=== PATIENT | female | born 1965 | race Caucasian/White ===

== ENCOUNTER → 2021-03-28 | Outpatient (CLI) | payer BC ==
--- NOTE | 2021-03-28 14:26 | Diagnostic Imaging Report ---
INDICATION: History of kidney stones. TIME OF EXAM: 2:03 PM. FINDINGS: The bowel gas pattern is nonobstructed. There is moderate stool in the right colon. There are some calcific densities overlying the left renal shadow, perhaps renal calculi. No definite ureteral calculi are seen. No other abnormality is detected. IMPRESSION: 1. Moderate stool, suggestive of constipation. 2. Left abdominal calcifications which could be renal. No definite ureteral calculi are seen. Dictated by: Dictated on workstation # [id number]
--- NOTE | 2021-03-28 14:33 | Diagnostic Imaging Report ---
CT ABDOMEN/PELVIS WO TECHNIQUE: Unenhanced CT imaging of the abdomen and pelvis was performed. 2-D reformats are created and submitted for interpretation. Automatic exposure controls were utilized to optimize patient dose. INDICATION: Urinary tract infection, history of renal stone. COMPARISON: None available. FINDINGS: Evaluation of the abdominal viscera is mildly limited without contrast. Lower chest: The lung bases are clear. No pericardial or pleural effusion. Peritoneum: No free intraperitoneal air or fluid. Liver and biliary system: Unenhanced liver is normal. The gallbladder is normal. No biliary duct dilation. Spleen and Pancreas: Spleen is normal. Unenhanced pancreas is grossly normal. Adrenals: Normal. tract: There are a few sites of cortical thinning involving the left kidney most compatible with areas of scar. There are a few punctate nonobstructing stones in lower pole left kidney measuring up to 3 mm. No ureteral stones on either side. Urinary bladder is normally filled without intraluminal stone. Uterus is normal in appearance. Dominant left adnexal cyst measures 8.2 x 6.8 cm. GI tract: Stomach is decompressed. No bowel obstruction. No pericolonic inflammatory changes. Normal appendix. Vasculature and Lymph nodes: Normal caliber aorta. No abdominal or pelvic lymphadenopathy. Musculoskeletal: No concerning osseous lesion. IMPRESSION: 1. There are a few punctate nonobstructing left renal stones measuring up to 3 mm. 2. No ureteral stones or obstructive uropathy. 3. Indeterminate left adnexal cystic mass measuring 8.2 x 6.8 cm. If this has not been previously worked up, ultrasound of the pelvis is recommended for further assessment. Dictated by: Dictated on workstation # [id number]
== END ==
LOC: RAD 13:45
PROVIDERS: ATTEND Urology
DX: N20.0 Calculus of kidney (principal); N83.8 Other noninflammatory disorders of ovary, fallopian tube and broad ligament; Z87.440 Personal history of urinary (tract) infections
CPT/HCPCS: 74018; 74176

== ENCOUNTER → 2021-04-13 | Outpatient (CLI) | payer BC ==
--- NOTE | 2021-04-13 15:22 | Diagnostic Imaging Report ---
PROCEDURE: Pelvic comp/transvaginal sonogram. TECHNIQUE: Complete transabdominal and transvaginal pelvic ultrasound was performed. In addition, limited pelvic Doppler was performed. INDICATION: Pelvic swelling as well as mass and lump. Uterus is retroverted measuring 5.7 x 2.8 x 3.9 cm. Endometrium is 2 mm in thickness. Tiny echogenic focus lower uterine segments noted, likely small calcification. No other myometrial mass is detected. Hypoechoic nodule in the cervix measures 9 mm a 6 mm x 8 mm. This could represent a complex nabothian cyst. A right ovary measures 3.6 x 2.9 x 2.7 cm. There is a cystic mass within the right ovary measuring 2.7 x 2.4 x 2.1 cm. This appears be fairly simple with no associated vascularity. Normal ovarian tissue in the left adnexa is not identified. There is a large cystic mass left adnexa measuring 7.6 x 5.3 x 8.2 cm. No associated nodularity, septations or vascularity are seen. No free fluid is detected. IMPRESSION: Bilateral adnexal cystic masses, largest on the left measuring approximately 8 cm. Close interval follow-up to confirm clearing or stability would be recommended with repeat study in 6 8 weeks. No other significant abnormality is detected. Dictated by: Dictated on workstation # [id number]
== END ==
LOC: RAD 12:18
PROVIDERS: ATTEND Obstetrics & Gynecology
DX: N83.8 Other noninflammatory disorders of ovary, fallopian tube and broad ligament (principal)
CPT/HCPCS: 36415; 76830; 76856; 86304

== ENCOUNTER 2021-05-02 05:33 | Outpatient (CLI) | payer BC ==
[~2021-05-02] VITALS: Ht 177.8 cm; Wt 88.6 kg
[2021-05-02] MEDS ORDERED: GBPN600T PO (14:18)
[2021-05-02] MEDS ORDERED: ALPR1TAB10 PO (14:18)
[2021-05-02] MEDS ORDERED: LAMO100T5 PO (14:18)
[2021-05-02] MEDS ORDERED: ALPR2TAB6 PO (14:18)
[2021-05-02] MEDS ORDERED: BACL10TA PO (14:18)
[2021-05-02] MEDS ORDERED: NITR100C PO (14:18)
[2021-05-02] MEDS ORDERED: DIVA500T15 PO (14:18)
== END 2021-05-02 14:41 | disposition home or self-care (01) ==
LOC: PREOP 05:33
PROVIDERS: ATTEND Obstetrics & Gynecology
DX: Z01.818 Encounter for other preprocedural examination (principal)

== ENCOUNTER 2021-05-09 05:52 | Day surgery (SDC) | payer BC ==
[2021-05-09] VITALS (10 sets, daily range): BP systolic 105–149; BP diastolic 60–99
[~2021-05-09] VITALS: Ht 177.8 cm; Wt 88.6 kg
[~2021-05-09 05:52] MED LIST: ALPR1TAB10 PO; ALPR2TAB6 PO; BACL10TA PO; DIVA500T15 PO; GBPN600T PO; LAMO100T5 PO; NITR100C PO
--- OUTSIDE RECORDS SUMMARY | 2021-05-09 05:55 | XMS REPORT | Clinical Summary ---
Demographics Preferred Language Unknown Marital Status Unknown Uats[place] Affiliation Unknown Race Unknown Ethnic Group Unknown Author Author [facility] Organization [facility] Address Unknown Phone Unavailable Care Team Providers Care Detective Homicide Squad Name Role Phone PCP Unavailable Source Comments Some departments are not documenting in the electronic medical record. If you d o not see the information that you expected, contact Release of Information in [facility] Information Management department at [phone] for further assistan ce in locating additional records.[facility] Allergies Not on File Medications Not on file Active Problems Not on file Social History Date Tobacco Use Types Packs/Day Years Used Never Assessed Sex Assigned at Date Recorded Not on file Last Filed Vital Signs Not on file Plan of Treatment Health Maintenance Due Date Last Done Comments HIV SCREENING 1981 DTAP/TDAP VACCINES (1 - 1984 Tdap) HEPATITIS C SCREENING 1984 PHYSICAL (COMPREHENSIVE) 1984 EXAM CERVICAL CANCER SCREENING 1987 BREAST CANCER SCREENING 2006 COLORECTAL CANCER 2016 SCREENING SHINGLES RECOMBINANT 2016 VACCINE (1 of 2) INFLUENZA VACCINE 11/21/2020 Results Not on filefrom Last 3 Months
--- OUTSIDE RECORDS SUMMARY | 2021-05-09 05:55 | XMS REPORT | Clinical Summary ---
Author Author [facility] Address Unknown Phone Unavailable Care Team Providers Care Trader Name Role Phone Provider, Notinsystem MODEL USER PCP Unavail able Cirilo Loja MD Unavailable Zackery Mcknight MD, Robert Unavailable Allergies No known active allergies Medications End Date Status Medication Sig Dispensed Refills Start Date Active ALPRAZolam XR (XANAX XR) Take 1 tablet 0 06/11 1 MG 24 hr tablet by mouth 0 daily. Active ALPRAZolam (XANAX) 2 MG Take 2 mg by 0 tablet mouth daily. 0 Active divalproex (DEPAKOTE) 500 Take 1 tablet 0 06/[address] tablet by mouth 1 daily. Active gabapentin (NEURONTIN) Take 600 mg 0 600 MG tablet by mouth 2 (two) times daily. Active lamoTRIgine (LAMICTAL) Take 100 mg 0 06/30/ 02 100 MG tablet by mouth 1 daily. Active acetaminophen (TYLENOL) Take 1 tablet 30 tablet 0 500 MG tabletIndications: (500 mg 1 Intracranial hemorrhage total) by (HCC) mouth every 6 (six) hours as needed for Mild Pain. Active Problems Problem Noted Date Fall 02/17/2021 Acute hypernatremia 02/17/2021 Obesity (BMI 30.0-34.9) 02/17/2021 Bipolar affective disorder, currently depressed, mild 02/17/2021 Encounters Care Team Description Date Type Specialty Zakia Wing RN 02/22/2021 Transitional Care Management Care Management (TCM) Emily Santos MD Dixon, Brenner F, MD Stinson, Wade W Jr., Larissa Marcos MD Intracranial hemorrhage (HCC) (Primary D x); Open extensive facial fractures, initial encounter ([facility]) 02/17/2021 Hospital - Encounter 02/20/2021 from Last 3 Months Immunizations Name Administration Dates Next Due Tdap 02/17/2021 Social History Date Tobacco Use Types Packs/Day Years Used Unknown If Ever Smoked Comments Alcohol Use Standard Drinks/Week Pt reported that she drank "a couple bot tles of wine," leading to her fall. However, pt stated that she rarely drinks, and has only drank on two occasions this year. Yes 0 (1 standard drink = 0.6 o z pure alcohol) Alcohol Habits Answer Date Recorded How often do you have a drink containing alcohol? Monthly or less 02/18/2021 How many drinks containing alcohol do you have on No t asked a typical day when you are drinking? How often do you have six or more drinks on one Less than monthly 02/18/2021 occasion? Comment: Pt reported that she drank "a 02/19/20 21 couple bottles of wine," leading to her fall. However, pt stated that she rarely drinks, and has only drank on two occasions this year. Social Isolation Answer Date Recorded In a typical week, how many times do you talk on More than three times a week 02/18/2021 the phone with family, friends, or neig hbors? How often do you get together with friends or More than th ree times a week 02/18/2021 relatives? How often do you attend zoroastrian or amish Never 02/18/2021 services? Do you belong to any clubs or organizations such No 02/18/2021 as zoroastrian groups, unions, fraternal or athletic groups, or school groups? How often do you attend meetings of the clubs or Never 02/18/2021 organizations you belong to? Are you now , , , , Divorce d 02/18/2021 never or living with a partner? Physical Activity Answer Date Recorded On average, how many days per week do you engage 0 days 02/18/2021 in moderate to strenuous exercise (like walking fast, running, jogging, dancing, swimmi ng, biking, or other activities that cause a light or heavy sweat)? On average, how many minutes do you engage in 0 min 02/18/2021 exercise at this level? Stress Answer Date Recorded Do you feel stress - tense, restless, nervous, or To some extent 02/18/2021 anxious, or unable to sleep at night be cause your mind is troubled all the time - these d ays? Financial Resource Strain Answer Date Recorde d How hard is it for you to pay for the very basics Not very hard 02/18/2021 like food, housing, medical care, and h eating? Intimate Partner Violence Answer Date Recorde d Within the last year, have you been afraid of your No 02/18/2021 partner or ex-partner? Within the last year, have you been humiliated or No 02/18/2021 emotionally abused in other ways by you r partner or ex-partner? Within the last year, have you been kicked, hit, No 02/18/2021 slapped, or otherwise physically hurt b y your partner or ex-partner? Within the last year, have you been raped or No 02/18/2021 forced to have any kind of sexual activ ity by your partner or ex-partner? Food Insecurity Answer Date Recorded Within the past 12 months, you worried that your Never oswaldo e 02/18/2021 food would run out before you got money to buy more. Within the past 12 months, the food you bought Never true 02/18/2021 just didn't last and you didn't have mo saray to get more. Transportation Needs Answer Date Recorded In the past 12 months, has lack of transportation No 02/18/2021 kept you from medical appointments or f rom getting medications? In the past 12 months, has lack of transportation No 02/18/2021 kept you from meetings, work, or gettin g things needed for daily living? Housing Stability Answer Date Recorded In the last 12 months, was there a time when you No 02/18/2021 were not able to pay the mortgage or re nt on time? In the last 12 months, how many places have you 1 02/18/2021 lived? In the last 12 months, was there a time when you No 02/18/2021 did not [address] a steady place to sleep or slept in a skilled nursing (including now)? Education Answer Date Recorded What is the highest level of school you have Master's degr ee (e.g., MA, MS, 02/18/2021 completed or the highest degree you have received? 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[employer], DINA) Sex Assigned at Date Recorded Not on file Last Filed Vital Signs Reading Time Taken Comments Vital Sign 126/76 02/20/2021 3:31 AM CDT Blood Pressure 62 02/20/2021 8:00 AM CDT Pulse 36.9 C (98.5 F) 02/20/2021 8:00 AM CDT Temperature 18 02/20/2021 8:00 AM CDT Respiratory Rate 97% 02/20/2021 8:00 AM CDT Oxygen Saturation - - Inhaled Oxygen Concentration 87.1 kg (192 lb) 02/18/2021 6:00 AM CDT Weight 165.1 cm (5' 5") 02/17/2021 1:07 PM CDT Height 31.95 02/17/2021 1:07 PM CDT Body Mass Index Plan of Treatment Health Maintenance Due Date Last Done Comments HIV Screening 1966 Pneumo-Vaccine: 65+Yrs (1 1972 of 2 - PPSV23) Pneumo-Vaccine: Peds (0-5 1972 Yrs) & At-Risk Patients (6-64 Yrs) (1 of 2 - PPSV23) Hepatitis C Screening 1984 MMR Vaccines-Adult 1985 Cervical Cancer Screening 1987 Colon Cancer Screening 2011 Breast Cancer 2016 Screening-Mammogram Zoster Vaccine (1 of 2) 2016 Influenza Vaccine (#1) 2020 DTaP,Tdap,and Td Vaccines 02/17/2031 02/17/2021 (2 - Td or Tdap) COVID-19 Vaccine Completed 03/24/2021, 08/10/2020, 07/13/2020 HIB Vaccines Aged Out No longer eligible based on patient's age to complete this topic IPV Vaccines Aged Out No longer eligible based on patient's age to complete this topic Meningococcal Vaccine Aged Out No longer eligib le based on patient's age to complete this topic Rotavirus Vaccines Aged Out No longer eligible based on patient's age to complete this topic Procedures Comments Procedure Name Priority Date/Time Associated Diag nosis CT HEAD WO CONTRAST Routine 02/19/2021 12:34 PM CDT CBC WITH AUTO Timed 02/19/2021 DIFFERENTIAL 6:20 AM CDT PHOSPHORUS Timed 02/19/2021 6:20 AM CDT MAGNESIUM Timed 02/19/2021 6:20 AM CDT BASIC METABOLIC PANEL Timed 02/19/2021 6:20 AM CDT CBC AND DIFFERENTIAL Timed 02/19/2021 6:20 AM CDT TELEMETRY WAVEFORMS 02/18/2021 12:01 PM CDT XR CHEST PA OR AP Routine 02/18/2021 9:15 AM CDT TELEMETRY WAVEFORMS 02/18/2021 8:[address] HEAD WO CONTRAST Routine 02/18/2021 5:59 AM CDT CBC WITH AUTO Timed 02/18/2021 DIFFERENTIAL 4:27 AM CDT PHOSPHORUS Timed 02/18/2021 4:27 AM CDT MAGNESIUM Timed 02/18/2021 4:27 AM CDT CBC AND DIFFERENTIAL Timed 02/18/2021 4:27 AM CDT COMPREHENSIVE METABOLIC Timed 02/18/2021 PANEL 4:27 AM CDT DRUG SCREEN (8) MEDICAL Timed 02/18/2021 12:46 AM CDT TELEMETRY WAVEFORMS 02/17/2021 7:40 PM CDT SV ED CRITICAL CARE Routine 02/17/2021 4:[address] ANGIO HEAD AND NECK STAT 02/17/2021 W/WO CONTRAST 3:38 PM CDT SALICYLATES STAT 02/17/2021 3:28 PM CDT DRUG SCREEN (8) MEDICAL STAT 02/17/2021 3:28 PM CDT URINALYSIS, REFLEX STAT 02/17/2021 CULTURE IF NEEDED 3:28 PM CDT HC SARS-COV-2 COVID-29 STAT 02/17/2021 AMP PRB 2:[address] CHEST ABDOMEN PELVIS W STAT 02/17/2021 CONTRAST 1:[address] CERVICAL SPINE WO STAT 02/17/2021 CONTRAST 1:[address] MAXILLOFACIAL WO STAT 02/17/2021 CONTRAST 1:[address] HEAD WO CONTRAST STAT 02/17/2021 1:45 PM CDT MANUAL WBC DIFFERENTIAL Routine 02/17/2021 1:22 PM CDT SCAN STAT 02/17/2021 1:22 PM CDT CBC WITH AUTO STAT 02/17/2021 DIFFERENTIAL 1:22 PM CDT PT & APTT STAT 02/17/2021 1:22 PM CDT HC STAT 02/17/2021 [id number] 1:22 PM CDT -Q CBC AND DIFFERENTIAL STAT 02/17/2021 1:22 PM CDT ALCOHOL, SERUM STAT 02/17/2021 1:22 PM CDT COMPREHENSIVE METABOLIC STAT 02/17/2021 PANEL 1:22 PM CDT from Last 3 Months Results * CT Head without Contrast (02/19/2021 12:34 PM CDT) Only the most recent of 3 results within the time period is included. Modality Anatomical Region Laterality Computed Tomography Head Specimen Impressions [facility] - 02/19/2021 12:56 PM CDT IMPRESSION: 1. Stable small epidural hematoma in the anterior right middle cranial fossa. 2. Stable hemorrhagic contusion in the i nferior left temporal lobe. 3. Subarachnoid blood along the anterior right frontal lobe has slightly decreased when compared with prior exams. 4. Stable facial bone fractures. Electronically signed by German Hinson MD Narrative [facility] - 02/19/2021 12:56 PM CDT PROCEDURE: CT HEAD WO CONTRAST STUDY DATE: February 19, 2021 TOTAL DLP 1064 mGycm CLINICAL INDICATION / HISTORY: Follow-up subdural hematoma, patient is hospital day 2. For right frontal cranial fossa subdu ral hematoma.. TECHNIQUE: Contiguous axial images were acquired from the skull base to the vertex on a multidetector scanner. All CT scans performed at this facility utilize dose reduction techniques as appropriate to the exam, including the following: Automatic Exposure Control and adjustment of the mA and/or kV according to patient size (this includes techniques or standardized protocols for targeted exams). COMPARISON: Head CT 02/18/2021 FINDINGS: Brain Parenchyma: Global parenchymal atrophy is present. No signs of infarction. Evans-white matter junction is preserved. Small hemorrhagic contusion is present in the inferior left temporal lobe on series 10, images 70-84. White matter: Periventricular white matter has normal attenuation. Cerebellum:Normal. Masses/midline shift: No mass or midline shift. Hemorrhage: Thin epidural hematoma in the right middle cranial fossa is unchanged. Faint subarachnoid blood is present over the anterior, superior right frontal gyrus. Subarachnoid blood has decreased when compared to the prior head CT's. Ventricles: The ventricles, sulci and cisterns are normal in appearance. Orbits: The orbits are normal in appearance. Paranasal sinuses: The paranasal sinuses are pneumatized. The mastoid air cells are pneumatized. Osseous: Nondisplaced fracture of the right zygomatic arch is unchanged. Soft tissues: Soft tissue swelling along the right face and frontal scalp is present and has decreased. Procedure Note German Hinson MD - 02/19/2021 PROCEDURE: CT HEAD WO CONTRAST STUDY DATE: February 19, 2021 TOTAL DLP 1064 mGycm CLINICAL INDICATION / HISTORY: Follow-up subdural hematoma, patient is hospital day 2. For right frontal cranial fossa subdu ral hematoma.. TECHNIQUE: Contiguous axial images were acquired from the skull base to the vertex on a multidetector scanner. All CT scans performed at this facility utilize dose reduction techniques as appropriate to the exam, including the following: Automatic Exposure Control and adjustment of the mA and/or kV according to patient size (this includes techniques or standardized protocols for targeted exams). COMPARISON: Head CT 02/18/2021 FINDINGS: Brain Parenchyma: Global parenchymal atrophy is present. No signs of infarction. Evans-white matter junction is preserved. Small hemorrhagic contusion is present in the inferior left temporal lobe on series 10, images 70-84. White matter: Periventricular white matter has normal attenuation. Cerebellum:Normal. Masses/midline shift: No mass or midline shift. Hemorrhage: Thin epidural hematoma in the right middle cranial fossa is unchanged. Faint subarachnoid blood is present over the anterior, superior right frontal gyrus. Subarachnoid blood has decreased when compared to the prior head CT's. Ventricles: The ventricles, sulci and cisterns are normal in appearance. Orbits: The orbits are normal in appearance. Paranasal sinuses: The paranasal sinuses are pneumatized. The mastoid air cells are pneumatized. Osseous: Nondisplaced fracture of the right zygomatic arch is unchanged. Soft tissues: Soft tissue swelling along the right face and frontal scalp is present and has decreased. IMPRESSION: IMPRESSION: 1. Stable small epidural hematoma in the anterior right middle cranial fossa. 2. Stable hemorrhagic contusion in the i nferior left temporal lobe. 3. Subarachnoid blood along the anterior right frontal lobe has slightly decreased when compared with prior exams. 4. Stable facial bone fractures. Electronically signed by German Hinson MD Performing Organization Address City/State/ZIP Code P jan Number [facility] * CBC auto differential (02/19/2021 6:20 AM CDT) Only the most recent of 3 results within the time period is included. WBC 4.0 3.5 - 10.5 10E9/L [facility] RBC 3.79 (L) 3.90 - 5.03 10E12/L [facility] Hemoglobin 11.3 (L) 12.0 - 15.5 g/dL [facility] Hematocrit 32.5 (L) 34.9 - 44.5 % [facility] MCV 85.8 81.6 - 98.3 fL [facility] MCH 29.8 26.0 - 34.0 pg [facility] MCHC 34.8 31.0 - 37.0 g/dL [facility] RDW 12.1 11.9 - 15.5 % [facility] Platelets 193 150 - 450 10E9/L [facility] nRBC 0.00 <=0.00 10E9/L [facility] Neutrophils % 51.1 40.0 - 75.0 % [facility] Lymphocytes % 39.8 22.0 - 49.0 % [facility] Monocytes % 6.5 2.0 - 10.0 % [facility] Eosinophils % 1.8 <=5.0 % [facility] Basophils % 0.8 0.0 - 2.5 % [facility] Neutrophils 2.05 1.70 - 7.00 10E9/L [facility] Lymphocytes 1.59 0.90 - 2.90 10E9/L [facility] Monocytes 0.26 (L) 0.30 - 0.90 10E9/L [facility] Eosinophils 0.07 0.05 - 0.50 10E9/L [facility] Basophils 0.03 0.00 - 0.30 10E9/L [facility] % nRBC 0 % [facility] Specimen Blood Performing Organization Address City/State/ZIP Code P jan Number [facility] [address] [place] [id number] * Phosphorus (02/19/2021 6:20 AM CDT) Only the most recent of 2 results within the time period is included. Phosphorus 2.8 2.7 - 4.5 mg/dL [facility] Specimen Blood Performing Organization Address City/State/ZIP Code P jan Number [facility] [address] [place] [address] * Magnesium (02/19/2021 6:20 AM CDT) Only the most recent of 2 results within the time period is included. Magnesium 1.9 1.6 - 2.3 mg/dL [facility] Specimen Blood Performing Organization Address City/[facility]/ZIP Code P jan Number [facility] [address] [place] [address] * Basic metabolic panel (02/19/2021 6:20 AM CDT) [facility] Sodium 142 136 - 145 mmol/L [facility] Potassium 3.7 3.6 - 4.9 mmol/L [facility] Chloride 108 99 - 111 mmol/L [facility] CO2 26 20 - 36 mmol/L [facility] Anion Gap 8 [facility] Glucose 104 74 - 106 mg/dL [facility] Calcium 8.3 8.3 - 10.6 mg/dL [facility] BUN, Bld 8 6 - 20 mg/dL [facility] Creatinine 0.58 0.40 - 1.10 mg/dL [facility] eGFR >59 >59 mL/min [facility] Specimen Blood Performing Organization Address [facility] P jan Number [facility] [address] [place] [id number] * TELEMETRY WAVEFORMS (02/18/2021 12:01 PM CDT) Only the most recent of 3 results within the time period is included. Pathologist [facility] TELE TX 0.14 [facility] TELE QRS 0.06 [facility] TELE QT 0.30 [facility] TELE COMMENTS SJA RSR HR 100 [facility] TELE transfer [facility] INTERPRETATION TORING DIET AID/LOOM TECHNICIAN Yes [facility] APPROVED TORING Specimen Performing Organization Address City/[facility]/ZIP [facility] P jan Number [facility] * XR Chest (1 view) (02/18/2021 9:15 AM CDT) Modality Anatomical Region Laterality Computed Radiography Chest Specimen Impressions [facility] - 02/18/2021 12:30 PM CDT IMPRESSION: No active cardiopulmonary disease. Narrative [facility] - 02/18/2021 12:30 PM CDT EXAM: Portable Chest INDICATION: Follow-up chest trauma TECHNIQUE: Portable AP view COMPARISON: None FINDINGS: The heart size is normal. The great vessels appear unremarkable. There is no hilar or mediastinal mass. The lungs are clear. There is no pleural effusion or pneumothorax. A left shoulder arthroplasty is present. Procedure Note Tiffanie Ny MD - 02/18/2021 EXAM: Portable Chest INDICATION: Follow-up chest trauma TECHNIQUE: Portable AP view COMPARISON: None FINDINGS: The heart size is normal. The great vessels appear unremarkable. There is no hilar or mediastinal mass. The lungs are clear. There is no pleural effusion or pneumothorax. A left shoulder arthroplasty is present. IMPRESSION: IMPRESSION: No active cardiopulmonary disease. Performing Organization Address City/State/ZIP Code P jan Number HARLEEN Espinoza * Comprehensive metabolic panel (02/18/2021 4:27 AM CDT) Only the most recent of 2 results within the time period is included. Sodium 143 136 - 145 mmol/L [facility] Potassium 3.7 3.6 - 4.9 mmol/L [facility] Chloride 109 99 - 111 mmol/L [facility] CO2 25 20 - 36 mmol/L [facility] Anion Gap 9 [facility] Glucose 87 74 - 106 mg/dL [facility] Total Protein 5.5 (L) 5.7 - 8.2 g/dL [facility] Albumin 3.7 3.4 - 4.8 g/dL [facility] Calcium 7.6 (L) 8.3 - 10.6 mg/dL [facility] BUN, Bld 7 6 - 20 mg/dL [facility] Creatinine 0.56 0.40 - 1.10 mg/dL [facility] eGFR >59 >59 mL/min [facility] Total Bilirubin 0.4 0.0 - 1.2 mg/dL [facility] Alkaline 53 29 - 122 U/L [facility] ALT 13 10 - 46 U/L [facility] AST 20 16 - 37 U/L [facility] Specimen Blood Performing Organization Address City/State/ZIP Code P jan Number [facility] [address] [place] [address] * Drug Screen (8) Medical (02/18/2021 12:46 AM CDT) Only the most recent of 2 results within the time period is included. Amphetamine Negative Negative Cutoff 1000 [facility] ng/mL [facility] Barbiturates Negative Negative Cutoff 200 [facility] ng/mL [facility] Benzodiazepines Positive (A) Negative Cutoff 200 [facility] ng/mL [facility] Opiates Negative Negative Cutoff 300 [facility] ng/mL [facility] PCP Negative Negative Cutoff 25 [facility] ng/mL [facility] THC Negative Negative Cutoff 50 [facility] ng/mL [facility] MDMA Negative Negative Cutoff 500 [facility] ng/mL [facility] Cocaine Negative Negative Cutoff 300 [facility] (Metabolite) ng/mL LAB[facility]ORY pH, UA 6.0 5.0 - 8.0 [facility] Specific 1.030 1.003 - 1.030 [facility] Riggins, UA LAB[facility]ATORY Ylcus-tl-Oxlzal [facility] y Protocol LABORATORY Specimen Urine - Urine specimen (specimen) Narrative [facility] - 02/18/2021 1:39 AM CDT Results not confirmed. May not meet forensic requirements. Confirmation by GC/MS available upon request. Performing Organization Address City/State/ZIP Code P jan Number [facility] [address] [place] [id number] * CRITICAL CARE TIME (02/17/2021 4:24 PM CDT) Narrative Agueda Vaca DO - 02/17/2021 4:24 PM CDT Agueda Vaca DO 02/17/2021 4:25 PM CRITICAL CARE TIME Performed by: Agueda Vaca DO Authorized by: Agueda Vaca DO Critical care provider statement: Critical care time (minutes): 35 Critical care was necessary to treat or prevent imminent or life-threatening deterioration of the following conditions: Trauma Critical care was time spent personally by me on the following activities: Ordering and review of radiographic studies, discussions with consultants, evaluation of patient's response to treatment, examination of patient and re-evaluation of patient's condition I assumed direction of critical care for this patient from another provider in my specialty: yes * CT Angio Head and Neck (with / without contrast) (02/17/2021 3:38 PM CDT) Modality Anatomical Region Laterality Computed Tomography Neck, C-spine, Vascular, Head Specimen Impressions [facility] - 02/17/2021 4:17 PM CDT IMPRESSION: 1. No dissection, occlusion, or high-g rade stenosis of the major arteries of the head and neck. 2. Multiple acute intracranial hemorrh ages and right-sided calvarial fractures are unchanged. Electronically signed by Cory Pollard MD Narrative [facility] - 02/17/2021 4:17 PM CDT EXAM: CT Angiogram of the Head and Neck INDICATION: trauma TECHNIQUE: CT images were obtained through the head per standard CTA protocol. Multiplanar and 3D reformatted images were generated from the CT dataset. All CT scans performed at this facility utilize dose optimization techniques as appropriate to the exam, including the following: Automated exposure control and adjustment of the mA and/or KV according to patient size (this includes techniques or standardized protocols for targeted exams where dose is indication/reason for exam). IV CONTRAST: Administered DLP 250 mGycm COMPARISON: None FINDINGS: CTA HEAD: No high-grade large vessel stenosis, proximal or branch vessel occlusion, aneurysm, or vascular malformation. ANTERIOR CIRCULATION: Small atherosclerotic plaque in the left cavernous ICA. Anterior and middle cerebral arteries are widely patent. ANTERIOR COMMUNICATING ARTERY: Patent. POSTERIOR COMMUNICATING ARTERIES: Present bilaterally and patent. POSTERIOR CIRCULATION: There is a origin of the bilateral posterior cerebral arteries. Vertebral and basilar arteries are widely patent. The left posterior inferior cerebellar arteries (PICAs), bilateral anterior inferior cerebellar arteries (AICAs), and bilateral superior cerebell ar arteries (SCAs) are visualized and patent. OTHER: Multiple acute intracranial hemorrhages are better visualized on the prior noncontrast enhanced CT of the head. Multiple right-sided calvarial fractures are stable. There is fluid in the paranasal sinuses. NECK CTA: AORTA: The origins of the great vessels are not included in the [id number]. No dissection or acute aortic injury. RIGHT CAROTID: The common and internal carotid arteries are widely patent, without evidence of flow limiting stenosis or dissection. LEFT CAROTID: The common and internal carotid arteries are widely patent, without evidence of flow limiting stenosis or dissection. VERTEBRAL ARTERIES: The right vertebral artery is dominant. No evidence of dissection or flow limiting stenosis. SUBCLAVIAN ARTERIES: Subclavian arteries are patent without stenosis. SOFT TISSUES: Laceration and swelling of the right frontal scalp. LUNGS: Dependent atelectasis. BONES: Multilevel degenerative changes and kyphotic curvature of the cervical spine. Where applicable, evaluation of ICA stenosis was performed using NASCET criteria, where the site of greatest stenosis is compared to the diameter of the ICA distal to the carotid bulb. Procedure Note Cory Pollard MD - 02/17/2021 EXAM: CT Angiogram of the Head and Neck INDICATION: trauma TECHNIQUE: CT images were obtained through the head per standard CTA protocol. Multiplanar and 3D reformatted images were generated from the CT dataset. All CT scans performed at this facility utilize dose optimization techniques as appropriate to the exam, including the following: Automated exposure control and adjustment of the mA and/or KV according to patient size (this includes techniques or standardized protocols for targeted exams where dose is indication/reason for exam). IV CONTRAST: Administered DLP 250 mGycm COMPARISON: None FINDINGS: CTA HEAD: No high-grade large vessel stenosis, proximal or branch vessel occlusion, aneurysm, or vascular malformation. ANTERIOR CIRCULATION: Small atherosclerotic plaque in the left cavernous ICA. Anterior and middle cerebral arteries are widely patent. ANTERIOR COMMUNICATING ARTERY: Patent. POSTERIOR COMMUNICATING ARTERIES: Present bilaterally and patent. POSTERIOR CIRCULATION: There is a origin of the bilateral posterior cerebral arteries. Vertebral and basilar arteries are widely patent. The left posterior inferior cerebellar arteries (PICAs), bilateral anterior inferior cerebellar arteries (AICAs), and bilateral superior cerebell ar arteries (SCAs) are visualized and patent. OTHER: Multiple acute intracranial hemorrhages are better visualized on the prior noncontrast enhanced CT of the head. Multiple right-sided calvarial fractures are stable. There is fluid in the paranasal sinuses. NECK CTA: AORTA: The origins of the great vessels are not included in the [id number]. No dissection or acute aortic injury. RIGHT CAROTID: The common and internal carotid arteries are widely patent, without evidence of flow limiting stenosis or dissection. LEFT CAROTID: The common and internal carotid arteries are widely patent, without evidence of flow limiting stenosis or dissection. VERTEBRAL ARTERIES: The right vertebral artery is dominant. No evidence of dissection or flow limiting stenosis. SUBCLAVIAN ARTERIES: Subclavian arteries are patent without stenosis. SOFT TISSUES: Laceration and swelling of the right frontal scalp. LUNGS: Dependent atelectasis. BONES: Multilevel degenerative changes and kyphotic curvature of the cervical spine. Where applicable, evaluation of ICA stenosis was performed using NASCET criteria, where the site of greatest stenosis is compared to the diameter of the ICA distal to the carotid bulb. IMPRESSION: IMPRESSION: 1. No dissection, occlusion, or high-gr amanda stenosis of the major arteries of the head and neck. 2. Multiple acute intracranial hemorrha ges and right-sided calvarial fractures are unchanged. Electronically signed by Cory Pollard MD Performing Organization Address City/State/ZIP Code P jan Number [facility] * Salicylates (02/17/2021 3:28 PM CDT) Salicylate, Negative [facility] LABORATORY Specimen Urine - Urine specimen obtained by clean catch procedure (specimen) Performing Organization Address City/State/ZIP Code P jan Number [facility] [address] [place] [address] * Urinalysis, reflex culture if indicated (02/17/2021 3:28 PM CDT) Color, UA Yellow [facility] Appearance Clear [facility] Specific 1.029 1.003 - 1.030 [facility] [place], UA LABORATORY pH, UA 5.5 5.0 - 8.0 [facility] Leukoesterase, Negative Negative [facility] LABOR[facility] Nitrites, UA Negative Negative [facility] Protein, UA Negative Negative [facility] Glucose, UA Negative Negative [facility] Ketones, UA Negative Negative [facility] Urobilinogen, 0.2 0.2 EU [facility]A LABOR[facility] Bilirubin, UA Negative Negative [facility] Hemoglobin, UA Negative Negative [facility] Squam Epithel, None [facility]en [facility] WBC, UA 0-3 0 - 3 [facility] RBC, UA 0-3 0 - 3 [facility] Specimen Urine - Urine specimen obtained by clean catch procedure (specimen) [facility] - 02/17/2021 3:53 PM CDT Urine was not cultured. Urinalysis results did not meet criteria for culture. Performing Organization Address City/State/ZIP Code P jan Number [facility] [address] [place] [address] * Perform Covid-19 By PCR (02/17/2021 2:47 PM CDT) COVID-19 (SV) Negative Negative [facility] Specimen Other - Other Performing Organization Address City/State/ZIP Code P jan Number [facility] [address] [place] [address] * CT Chest Abd & Pelvis (with IV contrast) (02/17/2021 1:45 PM CDT) Modality Anatomical Region Laterality Computed Tomography Abdomen, Chest, Pelvis, Hip Specimen Impressions [facility] - 02/17/2021 2:48 PM CDT IMPRESSION: 1. No definite acute abnormality is iden tified. 2. Low-density nodule along the inferior lateral right lobe of the thyroid gland. Recommend a follow-up thyroid ultrasound on a routine outpatient basis. 3. Dependent pulmonary opacities likely from atelectasis. 4. Small indeterminate left adrenal nodu le could represent an adrenal adenoma however recommend a follow-up CT of the abdomen with and without contrast and delayed imaging in 3-6 months. 5. Multiple areas of left renal cortical scarring. 6. Large left ovarian cystic lesion ashok uring up to 8.0 cm. There is a small right ovarian cystic lesion measuring 2.5 cm. Recommend clinical correlation and possible gynecological follow-up. 7. Focal area of luminal narrowing mid t o distal transverse colon. While this could relate to peristalsis, this does persist on the more delayed imaging. Therefore recommend clinical correlation and either short-term follow-up CT in approximately 3 months or if indicated, colonoscopy. Electronically signed by Quincy Zeng Narrative [facility] - 02/17/2021 2:48 PM CDT EXAM: CT Chest, Abdomen, and Pelvis with IV contrast INDICATION: fall, intoxicated TECHNIQUE: Multi-detector row CT images were acquired from the thoracic inlet through the ischial tuberosities with the use of IV contrast. Sagittal and coronal images were acquired from the transaxial data. All CT scans performed at this facility utilize dose optimization techniques as appropriate to the exam, including the following: Automated exposure control and adjustment of the mA and/or KV according to patient size (this includes techniques or standardized protocols for targeted exams where dose is matched to the indication/reason for exam). IV CONTRAST: Administered ORAL CONTRAST: None DLP 2242 mGycm COMPARISON: None FINDINGS: CHEST: CARDIOVASCULAR: Unremarkable. MEDIASTINUM & PETER: Low-density nodule along the inferior lateral right lobe of the thyroid gland measuring 1.7 x 1.5 cm on series 6 image 10. AIRWAY: Unremarkable. LUNGS: Dependent bilateral pulmonary opacities most likely related to decreased depth of aeration and atelectasis. PLEURAL SPACE: No pleural effusions or pneumothorax. OSSEOUS & SOFT TISSUE: Previous left shoulder arthroplasty noted. Bilateral breast implants. ABDOMEN/PELVIS: LIVER: Unremarkable. BILIARY SYSTEM: Gallbladder is unremarkable. Bile ducts are not dilated. PANCREAS: Unremarkable. SPLEEN: Unremarkable. ADRENALS: Small somewhat indeterminate left adrenal nodule measuring 1.3 x 0.9 cm on series 6 image 89. KIDNEYS & URETERS: Multiple areas of left renal cortical scarring. BLADDER: Unremarkable. REPRODUCTIVE ORGANS: Large left ovarian cyst measuring 8.0 x 6.9 cm. Small right ovarian cyst measuring 2.5 x 2.2 cm. GASTROINTESTINAL: The abdominal and pelvic bowel loops are normal in caliber. Focal area of luminal narrowing of the mid to distal transverse colon. While this is felt related to peristalsis, this does persist on the more delayed imaging. Therefore recommend clinical correlation and either short interval follow-up CT in approximately 3 months or if indicated, colonoscopy. The appendix is normal. MESENTERY/PERITONEUM/RETROPERITONEUM: Unremarkable. VASCULAR: Unremarkable. LYMPH NODES: No adenopathy OSSEOUS & SOFT TISSUES: Unremarkable. Procedure Note Quincy Zeng MD - 02/17/2021 EXAM: CT Chest, Abdomen, and Pelvis with IV contrast INDICATION: fall, intoxicated TECHNIQUE: Multi-detector row CT images were acquired from the thoracic inlet through the ischial tuberosities with the use of IV contrast. Sagittal and coronal images were acquired from the transaxial data. All CT scans performed at this facility utilize dose optimization techniques as appropriate to the exam, including the following: Automated exposure control and adjustment of the mA and/or KV according to patient size (this includes techniques or standardized protocols for targeted exams where dose is matched to the indication/reason for exam). IV CONTRAST: Administered ORAL CONTRAST: None DLP 2242 mGycm COMPARISON: None FINDINGS: CHEST: CARDIOVASCULAR: Unremarkable. MEDIASTINUM & PETER: Low-density nodule along the inferior lateral right lobe of the thyroid gland measuring 1.7 x 1.5 cm on series 6 image 10. AIRWAY: Unremarkable. LUNGS: Dependent bilateral pulmonary opacities most likely related to decreased depth of aeration and atelectasis. PLEURAL SPACE: No pleural effusions or pneumothorax. OSSEOUS & SOFT TISSUE: Previous left shoulder arthroplasty noted. Bilateral breast implants. ABDOMEN/PELVIS: LIVER: Unremarkable. BILIARY SYSTEM: Gallbladder is unremarkable. Bile ducts are not dilated. PANCREAS: Unremarkable. SPLEEN: Unremarkable. ADRENALS: Small somewhat indeterminate left adrenal nodule measuring 1.3 x 0.9 cm on series 6 image 89. KIDNEYS & URETERS: Multiple areas of left renal cortical scarring. BLADDER: Unremarkable. REPRODUCTIVE ORGANS: Large left ovarian cyst measuring 8.0 x 6.9 cm. Small right ovarian cyst measuring 2.5 x 2.2 cm. GASTROINTESTINAL: The abdominal and pelvic bowel loops are normal in caliber. Focal area of luminal narrowing of the mid to distal transverse colon. While this is felt related to peristalsis, this does persist on the more delayed imaging. Therefore recommend clinical correlation and either short interval follow-up CT in approximately 3 months or if indicated, colonoscopy. The appendix is normal. MESENTERY/PERITONEUM/RETROPERITONEUM: Unremarkable. VASCULAR: Unremarkable. LYMPH NODES: No adenopathy OSSEOUS & SOFT TISSUES: Unremarkable. IMPRESSION: IMPRESSION: 1. No definite acute abnormality is iden tified. 2. Low-density nodule along the inferior lateral right lobe of the thyroid gland. Recommend a follow-up thyroid ultrasound on a routine outpatient basis. 3. Dependent pulmonary opacities likely from atelectasis. 4. Small indeterminate left adrenal nodu le could represent an adrenal adenoma however recommend a follow-up CT of the abdomen with and without contrast and delayed imaging in 3-6 months. 5. Multiple areas of left renal cortical scarring. 6. Large left ovarian cystic lesion ashok uring up to 8.0 cm. There is a small right ovarian cystic lesion measuring 2.5 cm. Recommend clinical correlation and possible gynecological follow-up. 7. Focal area of luminal narrowing mid t o distal transverse colon. While this could relate to peristalsis, this does persist on the more delayed imaging. Therefore recommend clinical correlation and either short-term follow-up CT in approximately 3 months or if indicated, colonoscopy. Electronically signed by Quincy Zeng Performing Organization Address City/State/ZIP Code P jan Number [facility] * CT Cervical Spine without Contrast (02/17/2021 1:45 PM CDT) Modality Anatomical Region Laterality Computed Tomography C-spine, T-spine, Neck, Spine Specimen Impressions [facility] - 02/17/2021 2:34 PM CDT IMPRESSION: 1. No acute osseous abnormality is ident ified. 2. Soft tissue prominence in the nasal c avity along the turbinates could be within normal limits or represent etiology such as polyposis. Electronically signed by Quincy Zeng Narrative [facility] - 02/17/2021 2:34 PM CDT EXAM: CT Cervical Spine without IV contrast INDICATION: fall TECHNIQUE: Multi-detector row CT images were obtained through the cervical spine without the use of IV contrast. Post-processing sagittal and coronal reconstructed images were obtained for interpretation. All CT scans performed at this facility utilize dose optimization techniques as appropriate to the exam, including the following: Automated exposure control and adjustment of the mA and/or KV according to patient size (this includes techniques or standardized protocols for targeted exams where dose is matched to the indication/reason for exam). DLP 476 mGycm COMPARISON: None FINDINGS: CRANIOCERVICAL JUNCTION: Unremarkable. ALIGNMENT: Alignment is within normal limits. OSSEOUS: No evidence of fracture or bone destruction. DISC SPACES: Multilevel mild to moderate degenerative disc disease. FACET JOINTS: Multilevel mild uncovertebral and facet joint hypertrophy. SPINAL CANAL: Unremarkable. NEUROFORAMINA: Unremarkable. SOFT TISSUES: Soft tissue prominence in the nasal cavity along the nasal turbinates could be within normal limits or represent polyposis. Procedure Note Quincy Zeng MD - 02/17/2021 EXAM: CT Cervical Spine without IV contrast INDICATION: fall TECHNIQUE: Multi-detector row CT images were obtained through the cervical spine without the use of IV contrast. Post-processing sagittal and coronal reconstructed images were obtained for interpretation. All CT scans performed at this facility utilize dose optimization techniques as appropriate to the exam, including the following: Automated exposure control and adjustment of the mA and/or KV according to patient size (this includes techniques or standardized protocols for targeted exams where dose is matched to the indication/reason for exam). DLP 476 mGycm COMPARISON: None FINDINGS: CRANIOCERVICAL JUNCTION: Unremarkable. ALIGNMENT: Alignment is within normal limits. OSSEOUS: No evidence of fracture or bone destruction. DISC SPACES: Multilevel mild to moderate degenerative disc disease. FACET JOINTS: Multilevel mild uncovertebral and facet joint hypertrophy. SPINAL CANAL: Unremarkable. NEUROFORAMINA: Unremarkable. SOFT TISSUES: Soft tissue prominence in the nasal cavity along the nasal turbinates could be within normal limits or represent polyposis. IMPRESSION: IMPRESSION: 1. No acute osseous abnormality is ident ified. 2. Soft tissue prominence in the nasal c avity along the turbinates could be within normal limits or represent etiology such as polyposis. Electronically signed by Quincy Zeng Performing Organization Address City/State/ZIP Code P jan Number [facility] * CT Maxillofacial (without contrast) (02/17/2021 1:45 PM CDT) Modality Anatomical Region Laterality Computed Tomography Head Specimen Addenda Addendum by Quincy Zeng MD on 02/17/2021 2:29 PM CDT -------- ADDENDUM #1 -------- Given the fracture of the sella/posterior sphenoid sinus wall, the patient may benefit from a CT angiography to exclude carotid artery injury. The findings were discussed with Dr. Vaca at 2:27 PM. Electronically signed by Quincy Zeng Impressions [facility] - 02/17/2021 2:25 PM CDT IMPRESSION: CT head/maxillofacial: 1. Small extra-axial likely subdural hem orrhage along the anterior right middle cranial fossa. 2. Probable small subdural or less likel y intraparenchymal hemorrhage superior to the left temporal bone/mastoid air cells. 3. Small extra-axial likely subdural hem orrhage or less likely intraparenchymal hemorrhage in the anterior medial right frontal lobe adjacent to the falx. 4. Large right facial soft tissue contus ion/laceration. 5. Probable nondisplaced fractures of th e right lateral orbital wall, right zygomatic arch, and orbital surface of the right greater wing of the sphenoid. 6. There is bone fracture at least some of which is chronic. 7. Findings concerning for possible nond isplaced fracture of the sella turcica/posterior sphenoid wall. 8. The mandible is not entirely included on the [id number]. Findings discussed with Dr. Vaca at 2:19 PM. Electronically signed by Quincy Zeng Narrative [facility] - 02/17/2021 2:25 PM CDT -------- ORIGINAL REPORT -------- EXAM: CT head and maxillofacial without IV contrast INDICATION: fall TECHNIQUE: Multi-detector row CT images were obtained of the head and maxillofacial without the use of IV contrast. All CT scans performed at this facility utilize dose optimization techniques as appropriate to the exam, including the following: Automated exposure control and adjustment of the mA and/or KV according to patient size (this includes techniques or standardized protocols for targeted exams where dose is matched to the indication/reason for exam). DLP 1072 mGycm COMPARISON: None FINDINGS: CT head/maxillofacial: Small extra-axial subdural hemorrhage in the anterior right middle cranial fossa measuring 8 mm in thickness. Probable small subdural or less likely intraparenchymal hemorrhage superior to the left temporal bone/mastoid air cells. Small possible extra-axial or somewhat less likely parenchymal hemorrhage along the medial superior right frontal lobe adjacent to the falx. Contusion and laceration involving the anterior lateral right scalp. Fracture of the nasal bone with at least some chronic component although some underlying acute component is not entirely excluded. Findings suggestive of a acute nondisplaced fracture through the orbital surface of the right greater wing of the sphenoid bone. Probable nondisplaced fracture of the right zygomatic arch. There is some minimal questionable discontinuity and irregularity of the posterior wall of the sphenoid sinus forming the sella turcica with some very minimal gas in the region of the sella concern for additional nondisplaced fracture Partial fluid opacification of sphenoid sinuses. Trace fluid within the right maxillary sinus and right ethmoid air cells. The mandible is not entirely included on the [id number] Procedure Note Quincy Zeng MD - 02/17/2021 -------- ORIGINAL REPORT -------- EXAM: CT head and maxillofacial without IV contrast INDICATION: fall TECHNIQUE: Multi-detector row CT images were obtained of the head and maxillofacial without the use of IV contrast. All CT scans performed at this facility utilize dose optimization techniques as appropriate to the exam, including the following: Automated exposure control and adjustment of the mA and/or KV according to patient size (this includes techniques or standardized protocols for targeted exams where dose is matched to the indication/reason for exam). DLP 1072 mGycm COMPARISON: None FINDINGS: CT head/maxillofacial: Small extra-axial subdural hemorrhage in the anterior right middle cranial fossa measuring 8 mm in thickness. Probable small subdural or less likely intraparenchymal hemorrhage superior to the left temporal bone/mastoid air cells. Small possible extra-axial or somewhat less likely parenchymal hemorrhage along the medial superior right frontal lobe adjacent to the falx. Contusion and laceration involving the anterior lateral right scalp. Fracture of the nasal bone with at least some chronic component although some underlying acute component is not entirely excluded. Findings suggestive of a acute nondisplaced fracture through the orbital surface of the right greater wing of the sphenoid bone. Probable nondisplaced fracture of the right zygomatic arch. There is some minimal questionable discontinuity and irregularity of the posterior wall of the sphenoid sinus forming the sella turcica with some very minimal gas in the region of the sella concern for additional nondisplaced fracture Partial fluid opacification of sphenoid sinuses. Trace fluid within the right maxillary sinus and right ethmoid air cells. The mandible is not entirely included on the [id number] IMPRESSION: IMPRESSION: CT head/maxillofacial: 1. Small extra-axial likely subdural hem orrhage along the anterior right middle cranial fossa. 2. Probable small subdural or less likel y intraparenchymal hemorrhage superior to the left temporal bone/mastoid air cells. 3. Small extra-axial likely subdural hem orrhage or less likely intraparenchymal hemorrhage in the anterior medial right frontal lobe adjacent to the falx. 4. Large right facial soft tissue contus ion/laceration. 5. Probable nondisplaced fractures of th e right lateral orbital wall, right zygomatic arch, and orbital surface of the right greater wing of the sphenoid. 6. There is bone fracture at least some of which is chronic. 7. Findings concerning for possible nond isplaced fracture of the sella turcica/posterior sphenoid wall. 8. The mandible is not entirely included on the [id number]. Findings discussed with Dr. Vaca at 2:19 PM. Electronically signed by Quincy Zeng Performing Organization Address [facility] P jan Number [facility] * hCG Serum (Qual), Reflex (02/17/2021 1:22 PM CDT) Pathologist [facility] [place] hCG Negative mIU/mL [facility] Serum(Qual), LABORATORY Reflex Specimen Blood Performing Organization Address [facility] P jan Number [facility] [address] [place] [id number] * SCAN (02/17/2021 1:22 PM CDT) Pathologist [facility] [place] RBC Morphology RBC morphology appears normal [facility] Blood Smear Results confirmed by [facility] Scan microscopic exam LABORATORY Specimen Blood Performing Organization Address [facility] P jan Number [facility] [address] [place] [address] * PT & APTT (02/17/2021 1:22 PM CDT) Pathologist [facility] [place] aPTT 36.1 25.1 - 36.5 sec [facility] Prothrombin 11.6 10.7 - 13.4 seconds [facility] Time LABORATORY INR 0.96 0.85 - 1.12 [facility] Specimen Blood Narrative [facility] - 02/17/2021 1:48 PM CDT Application of the INR is recommended only for patients receiving warfarin therapy. Recommended therapeutic range: 2.0 - 3.0 for less intense therapy 2.5 - 3.5 for more intense therapy Performing Organization Address [facility] P jan Number [facility] [address] [place] [id number] * Manual WBC Differential (02/17/2021 1:22 PM CDT) Pathologist [facility] [place] Segmented 26 (L) 40 - 70 % [facility] Neutrophil % LABORATORY Band % 0 (L) 2 - 6 % [facility] Lymphocyte % 48 (H) 20 - 44 % [facility] Variant 15 (H) 0 - 5 % [facility] Lymphocyte % LABORATORY Monocyte % 5 0 - 8 % [facility] Eosinophil % 3 0 - 5 % [facility] Basophil % 1 0 - 2 % [facility] Metamyelocyte % 1 % [facility] Myelocyte % 1 % [facility] Neutrophils 1.2 (L) 1.7 - 7.0 10E9/L [facility] Absolute LABORATORY (Segs/Bands) Lymphocytes 3.0 (H) 0.9 - 2.9 10E9/L [facility]OR[facility] Monocytes 0.2 (L) 0.3 - 0.9 10E9/L [facility] Eosinophils 0.1 0.1 - 0.5 10E9/L [facility] Basophils 0.0 0.0 - 0.3 10E9/L [facility] Specimen Blood Performing Organization Address City/State/ZIP Code P jan Number [facility] [address] [place] [address] * Alcohol, Serum (02/17/2021 1:22 PM CDT) Pathologist [facility] [place] Alcohol Serum 336 (H) <=20 mg/dL [facility] Specimen Blood Narrative [facility] - 02/17/2021 2:20 PM CDT (mg/dL) 100 Intoxicated Minimal signs (0.10%) 200-250 Alertness lost, Effort needed to maintain (0.20-0.25%) becoming lethargic emotional and motor control 300-350 Stupor to coma Drowsy and slow (0.30-0.35%) >500 possible Coma (>0.50%) Source: Ethanol_2 Instructions for Use, September 2010 Rev. B, [employer] Performing Organization Address City/State/ZIP Code P jan Number [facility] [address] [place] [address] from Last 3 Months Insurance Type Payer Benefit Subscriber ID Effective Phone Address Plan / Dates Group HMO BCBS BCBS [id number] 2020-P [phone] [address] [facility] [place] [address] Advance Directives For more information, please contact: [phone] Patient Drying Machine Operator Explanation Type Date Recorded Living Will signed Advance Directives 02/21/2021 10:05 AM and Living Will DPOA SIGNED 02/18/[address] Sign Installer 02/21/2021 10:05 AM Date Inactivated Comments Code Status Date Activated Full Code 02/19/2021 9:00 PM 02/19/2021 9:00 PM Full Code 02/17/2021 4:04 PM Care Teams Start Date End Date Trader Relationship Specialty 02/20/21 Provider, Allan, PCP - General MODEL USER MD 02/22/21 Cirilo Loja MD Neurosurgery [address] [place], [place] [id number] [email or web address] [email or web address] 02/22/21 Isidoro Vizcarra MD Otolaryngolo [address] gy/ENT [place], [place] [id number] [email or web address] [place]
[2021-05-09] MEDS ORDERED: LACTATED RINGERS 1,000 ML IV ONE (06:15)
[2021-05-09] MEDS ORDERED: metroNIDAZOLE 500MG/100ML IVPB 100 ML IV ONE (06:15)
[2021-05-09] MEDS ORDERED: ceFAZolin 2 GM IV Premixed 50 ML IV ONE (06:15)
[2021-05-09] MEDS ORDERED: BUPIVACAINE 0.25% 30 ML (SENSORCAINE) VIAL ONE (06:25)
[2021-05-09] MEDS ORDERED: MIDAZOLAM 2 MG/2 ML (VERSED) VIAL IVP ONE (07:00)
[2021-05-09] MEDS ORDERED: LIDOCAINE PF 2% 5 ML (XYLOCAINE) VIAL ONE (07:03)
[2021-05-09] MEDS ORDERED: proPOfol 200 MG/20 ML (DIPRIVAN) VIAL IV ONE (07:03)
[2021-05-09] MEDS ORDERED: ONDANSETRON 4 MG/2 ML (SDV) Z0FRAN ONE (07:03)
[2021-05-09] MEDS ORDERED: fentaNYL INJ 100 MCG/2 ML AMP ONE (07:03)
[2021-05-09] MEDS ORDERED: MIDAZOLAM 2 MG/2 ML (VERSED) VIAL ONE ×2 (07:03→07:04)
[2021-05-09] MEDS ORDERED: ROCURONIUM 50 MG/5 ML (ZEMURON) VIAL IV ONE (07:03)
[2021-05-09 07:17] LABS: BASOPHILS % (AUTO) 1 % (0-10); EOSINOPHILS # (AUTO) 0.1 10^3/uL (0.0-0.3); EOSINOPHILS % (AUTO) 2 % (0-10); HEMATOCRIT 34 % (35-52); HEMOGLOBIN 12.2 g/dL (11.5-16.0); LYMPHOCYTES % (AUTO) 47 % (12-44); MEAN CORPUSCULAR HEMOGLOBIN 30 pg (25-34); MEAN CORPUSCULAR HGB CONC 36 g/dL (32-36); MEAN CORPUSCULAR VOLUME 83 fL (80-99); MEAN PLATELET VOLUME 11.2 fL (9.0-12.2); MONOCYTES # (AUTO) 0.3 10^3/uL (0.0-1.0); MONOCYTES % (AUTO) 6 % (0-12); NEUTROPHILS # (AUTO) 1.9 10^3/uL (1.8-7.8); NEUTROPHILS % (AUTO) 44 % (42-75); PLATELET COUNT 198 10^3/uL (130-400); WHITE BLOOD COUNT 4.2 10^3/uL (4.3-11.0)
--- NOTE | 2021-05-09 08:06 | Progress Note-Pre Operative ---
Pre-Operative Progress Note H&P Reviewed The H&P was reviewed, patient examined and no changes noted. Date Seen by Provider: May 09, 2021 Time Seen by Provider: 07:25 Date H&P Reviewed: May 09, 2021 Time H&P Reviewed: 07:20 Pre-Operative Diagnosis: 8cm pelvic mass JOZEF JIMÉNEZ DO May 09, 2021 08:06
[2021-05-09] MEDS ORDERED: HYDROmorphone 2 MG/ML VIAL (DILAUDID) IV PRN (08:15)
[2021-05-09] MEDS ORDERED: IBUPROFEN 600 MG (MOTRIN) TAB PO PRN (08:15)
[2021-05-09] MEDS ORDERED: ANTACID SUSP 30 ML UDC (MYLANTA) PO PRN (08:15)
[2021-05-09] MEDS ORDERED: ONDANSETRON 4 MG/2 ML (SDV) Z0FRAN IV PRN (08:15)
[2021-05-09] MEDS ORDERED: LACTATED RINGERS 1,000 ML IV SCH (08:15)
[2021-05-09] MEDS ORDERED: SIMETHICONE 80 MG (MYLICON) CHEW PO PRN (08:15)
[2021-05-09] MEDS ORDERED: DOCUSATE SODIUM 100 MG (COLACE) CAP PO PRN (08:15)
[2021-05-09] MEDS ORDERED: ZOLPIDEM 5 MG (AMBIEN) TAB PO PRN (08:15)
[2021-05-09] MEDS ORDERED: HYDROcodone/APAP 7.5 MG/325 MG (LORTAB, LORCET PLUS) TABLET PO PRN (08:15)
[2021-05-09] MEDS ORDERED: KETOROLAC 30 MG/ML VIAL IVP PRN (08:15)
[2021-05-09] MEDS ORDERED: NALOXONE 0.4 MG/ML 1 ML (NARCAN) VIAL IV PRN (08:15)
[2021-05-09] MEDS ORDERED: LACTATED RINGERS 1,000 ML IV PRN (09:00)
[2021-05-09] MEDS ORDERED: NEOSTIGMINE 3 MG/3 ML VIAL ONE (09:15)
[2021-05-09] MEDS ORDERED: GLYCOPYRROLATE 0.2 MG/ML (ROBINUL) 2 ML VIAL ONE (09:15)
[2021-05-09] MEDS ORDERED: SEVOFLURANE (ULTANE) 15 ML INHAL SOLN ONE (09:19)
[2021-05-09] MEDS ORDERED: ONDANSETRON 4 MG/2 ML (SDV) Z0FRAN IVP PRN (09:45)
[2021-05-09] MEDS ORDERED: morphine INJ 10 MG/ML 1ML (SYR OR VIAL) IVP ONE (09:45)
[2021-05-09] MEDS ORDERED: MEPERIDINE (DEMEROL) INJ 50 MG/ML IVP ONE (09:45)
[2021-05-09] MEDS ORDERED: PROMETHAZINE INJ 25 MG/ML (PHENERGAN) AMP IVP ONE (09:45)
[2021-05-09] MEDS ORDERED: HYDROmorphone 2 MG/ML VIAL (DILAUDID) IV ONE (09:45)
--- NOTE | 2021-05-09 10:31 | Discharge Inst-Women's Service ---
Discharge Inst-Women's Serv Depart Medication/Instructions New, Converted or Re-Newed RX: Transmitted to Pharmacy Problems Reviewed?: Yes Consults/Follow Up Additional Follow Up: Yes Orders/Referrals Dr. Polanco in 7-10 days and in 8 weeks Activity Activity: Activity as Tolerated Driving Instructions: No Driving for 1 Week NO SMOKING: NO SMOKING Nothing Inside Vagina: No Douching, No [place], No Tampons Diet Discharge Diet: No Restrictions Symptoms to Report to : Bleeding Excessive, Pain Increased, Fever Over 101 Degrees F, Vaginal Bleeding Increase, Questions/Concerns For Any Problems or Questions: Contact Your Physician Skin/Wound Care Infection Signs and Symptoms: Increased Redness, Foul Odor of Wound, Increased Drainage, Skin Itchy or Has a Rash, Increased Swelling, Temperature Above 101 F Operative Area Clean and Dry: Keep Incision Clean/Dry Stitches/Mayo/Dermabond: Dermabond, Care of Stitches Bathing Instructions: JOZEF Burnett DO May 09, 2021 10:31
[2021-05-09] MEDS ORDERED: HYDR-34 PO (10:33)
[2021-05-09] MEDS ORDERED: IBUP-844 PO (10:33)
[2021-05-09] MEDS ORDERED: DOCU100C37 PO (10:33)
[2021-05-09] MEDS ORDERED: SMT80CT PO (10:33)
[2021-05-09] MEDS: CHLORASEPTIC LOZENGE MM PRN ×2 (13:22→17:08)
--- NOTE | 2021-05-09 14:12 | OPERATIVE REPORT ---
DATE OF SERVICE: PREOPERATIVE DIAGNOSIS: 55-year-old female with 8 cm pelvic mass. POSTOPERATIVE DIAGNOSIS: 55-year-old female with 8 cm pelvic mass. PROCEDURE: Robotic-assisted total laparoscopic hysterectomy with bilateral salpingo-oophorectomy weighing greater than 250 grams. SURGEON: Rosalio Jiménez DO COSMETIC SALES CONSULTANT: Mai Lopez DNP, was necessary for manipulation and retraction throughout the procedure. ANESTHESIA: General endotracheal. ESTIMATED BLOOD LOSS: Minimal. URINE OUTPUT: 300 mL clear at the end of procedure. FLUIDS: 1700 mL lactated Ringer's solution. FINDINGS: A grossly normal-appearing uterus, cervix, bilateral fallopian tubes, right ovary. The left ovary is enlarged and cystic approximately 8 to 10 cm in diameter. SPECIMEN SENT: Uterus, bilateral fallopian tubes and ovaries. INDICATIONS FOR PROCEDURE: This 55-year-old female is a patient who had sought care in my office after imaging studies revealed that she had an 8 to 10 cm suspected adnexal or ovarian mass in the pelvis. There was no pelvic lymphadenopathy. There was no ascites noted on CT exam and CA-125 was negative. Due to the likelihood of this benign process, I offered benign hysterectomy, both for removal of the ovary in a minimally invasive manner. Risks of procedure were discussed with the patient in detail and after all of her questions were answered including followup, risk from bleeding, infection, damage to surrounding structures, possible need for reoperation, postoperative recovery time frame, postoperative complications that may occur. All of her questions were answered and consent was obtained in the preoperative area. The patient was taken to the operating room. OPERATIVE REPORT IN DETAIL: Once in the operating room, general anesthesia was found to be adequate, placed in dorsal lithotomy position, prepped and draped in normal sterile fashion. Timeout was performed and anesthesia was tested. I then placed a Hendricks catheter using sterile technique. Weighted speculum was inserted to the patient's vagina. 0 Vicryl suture was placed in the anterior lip of the cervix using my retraction point. I then gently sound the uterine cavity, depth was found to be 8 cm. I selected an 8 cm Kia uterine manipulator tip and a 4 cm colpotomy ring. The manipulator tip was advanced into the uterus where the balloon was deployed. Colpotomy ring was advanced around the vaginal fornix, which offers excellent bimanual manipulation on bimanual exam. I then removed all the instruments from the patient's vagina, performed change of gloves and took my attention to the abdomen, where subcostally on the midclavicular line on the left side of the body, I introduced the Veress needle until intraperitoneal placement was confirmed using saline drop test. An opening pressure of 4 mmHg was noted, proceeded to maximum pressure of 15 mmHg using CO2 gas, at which point, I infiltrated the skin supraumbilically using 0.25% Marcaine with making 8 mm incision and directed a blunt da Libby robotic 8 mm trocar through the incision until intraperitoneal placement confirmed using a da Libby laparoscope. A brief scan of the lower abdominal anatomy appears to be normal. Upper abdominal anatomy appears to be normal. The Veress entry site does not have any evidence of damage upon entry. I then removed the Veress needle. I then had the patient placed in steep Trendelenburg, I am able to visualize all my pelvic anatomy as defined in my findings above. I placed two lateral trocars, both 8 mm trocars, skin was infiltrated using 0.25% Marcaine, 8 mm incisions were made and the trocars were placed under direct visualization and laparoscope. Once both these trocars were in place and bringing the da Libby robot and docked in appropriate fashion placing the SynchroSeal device in left hand and monopolar wyatt in the right hand, I performed the following dissection bilaterally starting at the infundibulopelvic ligament, I sealed and transected using the SynchroSeal device. I then carried this dissection plane all the way around to the round ligament, which I sealed and transected using the SynchroSeal device. During the process of doing this opened up the posterior leaflet of the broad ligament, which allows me to skeletonize and identified the ureter down the pelvic sidewall and maintained my dissection away from this point. The posterior reflection of the broad ligament dissection was taken down to the posterior vaginal fornix. The anterior reflection was taken around the anterior vaginal fornix. This allows me to skeletonize the uterine vessels laterally, which I sealed and transected using the SynchroSeal device. I then created a colpotomy at 12 o'clock position using monopolar wyatt. I took this circumferentially around the vaginal fornix amputating the cervix away from the vagina. This was done after I sealed the uterine arteries bilaterally using SynchroSeal device. Once the uterus was freed up, I amputate the left ovary due to its size away from the uterus using the SynchroSeal device. The uterus, right tube and ovary were removed through the vagina. The ovary is removed and an Endopouch bag intact through the vagina after the uterus was removed, after which there was no active bleeding noted from any of my dissection planes. I proceeded with closing the lateral vaginal apices of the vaginal cuff using 2-0 Vicryl suture in a [id number] fashion colposuspending into the uterosacral ligaments. I closed the remainder of the vaginal cuff using 2-0 V-Loc in a running fashion, after which no active bleeding noted from any of my dissection planes. I then undocked the da Libby robot and proceeded with remainder of the case laparoscopically. I copiously irrigated the pelvis using normal saline. Once again, there was no active bleeding noted from any of my dissection planes. I placed Surgiflo hemostatic agent over all my planes of dissection. I had the patient taken out of steep Trendelenburg where I removed the lateral trocars under direct visualization of the laparoscope and infraumbilical trocars left in place to release insufflation and introduce 10 mL of 0.25% Marcaine into the peritoneal cavity for postoperative pain management. I then removed this trocar as well. The skin was reapproximated using 4-0 Monocryl in interrupted subcuticular stitches. Dermabond was applied to the incisions and Band-Aids were placed over the incisions as well. Hendricks catheter was left in place. Two grams of Ancef and 500 mg of Flagyl were given preoperatively for infection prophylaxis. Job ID: [id number] DocumentID: [id number] Dictated Date: 05/09/2021 10:48:10 Wood Last Maker Date: 05/09/2021 14:11:51 Dictated By: ROSALIO JIMÉNEZ DO
--- NOTE | 2021-05-10 07:10 | Anesthesia-General Post-Op ---
General Patient Condition Mental Status/LOC: Same as Preop Cardiovascular: Satisfactory Nausea/Vomiting: Absent Respiratory: Satisfactory Pain: Controlled Complications: Absent Post Op Complications Complications None Follow Up Care/Instructions Patient Instructions None needed. Anesthesia/Patient Condition Patient Condition Patient is doing well, no complaints, stable vital signs, no apparent adverse anesthesia problems. No complications reported per nursing. [place] [facility] [place]: Yes RICARDO ROMO CRNA May 10, 2021 07:10
== END 2021-05-09 17:30 | disposition home or self-care (01) ==
LOC: SDC 05:52 → WS 10:30 → SDC 17:30
PROVIDERS: ATTEND Obstetrics & Gynecology
DX: D27.1 Benign neoplasm of left ovary (principal); D27.0 Benign neoplasm of right ovary; F31.9 Bipolar disorder, unspecified; F41.9 Anxiety disorder, unspecified; F17.210 Nicotine dependence, cigarettes, uncomplicated; Z78.0 Asymptomatic menopausal state; Z79.1 Long term (current) use of non-steroidal anti-inflammatories (NSAID); Z79.899 Other long term (current) drug therapy
CPT/HCPCS: 36415; 84703; 85025; 86850; 86900; 86901; 87081